=== PATIENT | female | born 1995 | race American Indian/Alaskan Native ===

== ENCOUNTER 2018-07-20 15:30 | Outpatient (CLI) | payer MEDICAID ==
[2018-07-20] MEDS ORDERED: LACTATED RINGERS 500 ML IV ONE (16:22)
[2018-07-20 16:43] VITALS: BP 100/66
[2018-07-20 17:01] LABS: Bilirubin,Urine NEG (Negative); Blood,Urine NEG (Negative); Color,Urine Straw (Yellow); Protein,Urine <15 mg/dL mg/dL (Negative); Urobilinogen,Urine < 2.0 mg/dL (<2.0); WBC,Urine < 1.0 /HPF (0.0-6.0)
[2018-07-20 17:09] LABS: Amphetamine Screen,Urine PRESUMPTIVE NEGATIVE; Benzodiazepines Screen,Urine PRESUMPTIVE NEGATIVE; Cannabinoid Screen,Urine PRESUMPTIVE NEGATIVE; Cocaine Screen,Urine PRESUMPTIVE NEGATIVE; Methadone Screen,Urine PRESUMPTIVE NEGATIVE; Opiate Screen,Urine PRESUMPTIVE NEGATIVE
== END 2018-07-20 19:28 | disposition home or self-care (01) ==
LOC: TRG 15:30 → LD 15:33 → TRG 16:16
PROVIDERS: ATTEND Obstetrics & Gynecology
DX: O47.03 False labor before 37 completed weeks of gestation, third trimester (principal); Z3A.37 37 weeks gestation of pregnancy
CPT/HCPCS: 59025; 80307; 81001

== ENCOUNTER 2019-02-18 17:05 | Emergency (ER) | payer MEDICAID ==
--- NOTE | 2019-02-18 20:15 | Event Note ---
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 Further treatment and workup at subsequent clinical providers discretion. Patient/guardian urged not to elope from the ED as their condition may be serious if not clinically assessed and managed. Initial orders include: Pt presents with a non-medical emergency Examination is normal, Vital sign are stable Pt given information for clinics to follow up with pcp for further treatment and evaluation Also discussed strict return precautions in detail with pt who verbalized understanding
[2019-02-18 20:16] VITALS: BP 96/60
== END 2019-02-18 20:29 | disposition left against medical advice (07) ==
LOC: ED 17:05
DX: N64.4 Mastodynia (principal)
CPT/HCPCS: 99282